=== PATIENT | female | born 1960 | race Asian ===

== ENCOUNTER → 2024-07-20 06:26 | Day surgery (SDC) | payer BC, SELFPAY ==
[2024-07-20 07:22] LABS: Glucose - Point of Care 105 mg/dl (70-99)
== END ==
LOC: GI 06:26
PROVIDERS: ATTENDING PHYSICIAN Internal Medicine Gastroenterology; FAMILY PHYSICIAN Family Medicine
DX: Z12.11 Encounter for screening for malignant neoplasm of colon (principal); K63.5 Polyp of colon; K64.8 Other hemorrhoids; Z86.0100 Personal history of colon polyps, unspecified
CPT/HCPCS: 45380; 88305; 82962